=== PATIENT | female | born 1985 | race African-American/Black ===

== ENCOUNTER 2023-09-24 19:11 | Emergency (ER) | payer OTHER ==
[2023-09-24 19:39] VITALS: BP 123/77; TEMP 97.9; BMI 24.3
[2023-09-24] MEDS ORDERED: ACETAMINOPHEN 1000 MG/100 ML BAG IVPB ONE (21:47)
[2023-09-24] MEDS ORDERED: MECLIZINE HCL 25 MG TABLET (FP) PO ONE (21:47)
[2023-09-24] MEDS ORDERED: METOCLOPRAMIDE HCL INJECTION 10 MG/2 ML VIAL IVPB ONE (21:47)
[2023-09-24] MEDS ORDERED: MECLIZINE HCL 25 MG TABLET (FP) ONE (21:54)
[2023-09-24] MEDS ORDERED: ACETAMINOPHEN INJECTION 100 ML IVPB ONE (21:54)
[2023-09-24] MEDS ORDERED: METOCLOPRAMIDE HCL INJECTION 10 MG/2 ML VIAL ONE (21:54)
[2023-09-24 22:13] LABS: BASO % 0.2 % (0-2.0); EOS % 0.2 % (0-4.5); HEMATOCRIT 39.9 % (32.4-45.2); HEMOGLOBIN 12.9 GM/dL (10.7-15.3); LYMPH % 12.1 % (8-40); MCH 29.6 pg (25.7-33.7); MCHC 32.4 g/dl (32.0-36.0); MEAN CELL VOLUME 91.2 fl (80-96); MEAN PLT VOLUME 9.3 fl (7.5-11.1); MONO % 3.2 % (3.8-10.2); NEUT % 84.3 % (42.8-82.8); PLATELET COUNT 246 10^3/uL (134-434); RBC 4.37 M/mm3 (3.60-5.2); RDW 13.1 % (11.6-15.6); WHITE BLOOD COUNT 7.8 K/mm3 (4.0-10.0)
[2023-09-24 22:38] LABS: POTASSIUM 4.6 mmol/L (3.5-5.1)
[2023-09-24 22:40] LABS: BLOOD UREA NITROGEN 6.5 mg/dL (7-18); CALCIUM 9.5 mg/dL (8.5-10.1)
[2023-09-24 22:43] LABS: CREATININE 0.6 mg/dL (0.55-1.3)
[2023-09-24 22:45] LABS: TOT PROT 8.1 g/dl (6.4-8.2)
[2023-09-24] MEDS ORDERED: SODIUM CHLORIDE 0.9% 500 ML INFUS.BAG IV ONE (23:12)
[2023-09-24 23:34] LABS: BILIRUBIN,TOTAL 0.4 mg/dL (0.2-1)
[2023-09-25 00:59] VITALS: PULSE 72; RESP 16
== END 2023-09-25 01:03 | disposition home or self-care (01) ==
LOC: JER 19:11
PROC: 3E033NZ Introduction of Analgesics, Hypnotics, Sedatives into Peripheral Vein, Percutaneous Approach (ICD-10-PCS; principal; 2023-09-24)
PROC: 3E033GC Introduction of Other Therapeutic Substance into Peripheral Vein, Percutaneous Approach (ICD-10-PCS; 2023-09-24)
DX: R51.9 Headache, unspecified (principal); R11.2 Nausea with vomiting, unspecified; R42 Dizziness and giddiness; R53.1 Weakness; H57.13 Ocular pain, bilateral; R20.2 Paresthesia of skin
CPT/HCPCS: 36415; 70450-TC; 80053; 83735; 84484; 84703; 85025; 93005; 93010; 99285-25